=== PATIENT | male | born 1940 | race Caucasian/White ===

== ENCOUNTER 2021-11-28 15:08 | Emergency (ER) | payer OTHER ==
[2021-11-28 15:40] VITALS: BP 127/64
[2021-11-28] MEDS ORDERED: LIDOCAINE 1%HCL (LOCAL ANESTH) 10 ML MDV ONE (15:58)
== END 2021-11-28 18:32 | disposition home or self-care (01) ==
LOC: ER 15:08
DX: S09.90XA Unspecified injury of head, initial encounter (principal); W18.39XA Other fall on same level, initial encounter; Y93.89 Activity, other specified; Y92.89 Other specified places as the place of occurrence of the external cause; Y99.8 Other external cause status
CPT/HCPCS: 70450; 70486; 99284; J2001